=== PATIENT | female | born 1965 | race Caucasian/White ===

== ENCOUNTER 2017-06-27 21:52 | Inpatient (IN) | payer OTHER ==
[~2017-06-27] VITALS: Ht 162.6 cm; Wt 93.9 kg
[2017-06-27 23:59] LABS: BASOPHIL % 0.9 % (0-2); PLATELET COUNT 315 x10^3mcL (130-400); RED CELL DISTRIBUTION WIDTH 12.5 % (11.5-14.5)
[2017-06-28 00:02] LABS: ALBUMIN 3.4 g/dL (3.4-5.0); BILIRUBIN TOTAL 0.1 mg/dL (0.20-1.00); CARBON DIOXIDE 27.6 mmol/L (21-32); CREATININE SERUM 1.1 mg/dL (0.6-1.0); TOTAL PROTEIN, SERUM 7.4 g/dL (6.4-8.2)
[2017-06-28 00:24] LABS: CK-MB < 0.5 ng/mL (0-3.6); CREATINE KINASE 55 U/L (26-192)
[2017-06-28 03:34] LABS: T3 TOTAL 0.87 ng/mL
[2017-06-28 03:41] LABS: MAGNESIUM 2.2 mg/dL (1.8-2.4); PHOSPHOROUS 4.9 mg/dL (2.5-4.9)
[2017-06-28 03:47] LABS: FREE T4 1.03 ng/dL (0.76-1.46); FREE THYROXINE INDEX 2.1 ug/dL (1.4-4.5); T4(THYROXINE) 5.7 ug/dL (4.7-13.3)
[2017-06-28 03:50] VITALS: BP 114/57
[2017-06-28 07:04] LABS: BASOPHIL % 0.2 % (0-2); PLATELET COUNT 277 x10^3mcL (130-400); RED CELL DISTRIBUTION WIDTH 13.5 % (11.5-14.5)
[2017-06-28 07:36] LABS: CALCIUM 8.6 mg/dL (8.5-10.1); CARBON DIOXIDE 25.2 mmol/L (21-32); CHLORIDE SERUM 109 mmol/L (98-107); CREATININE SERUM 0.9 mg/dL (0.6-1.0); GFR1 > 60 mL/min; GLUCOSE SERUM 89 mg/dL (74-106); POTASSIUM SERUM 4.3 mmol/L (3.5-5.1); SODIUM SERUM 142 mmol/L (136-145)
[2017-06-28 09:34] LABS: microscopic required? YES; urine erythrocyte NEGATIVE (NEGATIVE)
[2017-06-28 09:37] VITALS: BP 131/69
[2017-06-28 10:04] LABS: AMPHETAMINE QUAL UR NONE DETECTED (NEG <=1000)
[2017-06-28 17:49] VITALS: BP 125/67
[2017-06-28 21:56] VITALS: BP 143/75
[2017-06-29 05:30] VITALS: BP 128/67
[2017-06-29 07:16] LABS: BASOPHIL % 0.7 % (0-2); PLATELET COUNT 249 x10^3mcL (130-400)
[2017-06-29 07:35] LABS: CALCIUM 8.7 mg/dL (8.5-10.1); CARBON DIOXIDE 26.2 mmol/L (21-32); CHLORIDE SERUM 111 mmol/L (98-107); CREATININE SERUM 0.8 mg/dL (0.6-1.0); GFR1 > 60 mL/min; GLUCOSE SERUM 83 mg/dL (74-106); POTASSIUM SERUM 4.2 mmol/L (3.5-5.1); SODIUM SERUM 141 mmol/L (136-145)
[2017-06-29] MEDS ORDERED: AUG500 PO ×2 (09:02→13:35)
[2017-06-29 09:04] VITALS: BP 120/70
[2017-06-29] MEDS ORDERED: LAC PO ×2 (10:44→13:35)
[2017-06-29] MEDS ORDERED: ZES20 PO ×2 (10:45→13:35)
[2017-06-29 10:53] VITALS: BP 120/70
[2017-06-29 13:08] VITALS: BP 138/68
[2017-06-29] MEDS ORDERED: CLARITIN10 MG PO (13:33)
[2017-06-29] MEDS ORDERED: HCTZ/LISINOPRIL1 TA1 PO (14:17)
== END 2017-06-29 14:25 | disposition home or self-care (01) | DRG 74 ==
LOC: ED 21:52 → DU 06-28 00:55
PROVIDERS: Emergency Medicine; Family Medicine; ADMIT Family Medicine
DX: G90.9 Disorder of the autonomic nervous system, unspecified (principal); N39.0 Urinary tract infection, site not specified; Z88.8 Allergy status to other drugs, medicaments and biological substances; E03.9 Hypothyroidism, unspecified; I10 Essential (primary) hypertension; E11.9 Type 2 diabetes mellitus without complications; E66.9 Obesity, unspecified; Z68.35 Body mass index [BMI] 35.0-35.9, adult
CPT/HCPCS: 82962; 83880; 84439; J0696; J7030; Q0092